=== PATIENT | male | born 1965 | race Two or more races ===

== ENCOUNTER 2017-10-07 08:41 | Day surgery (SDC) | payer OTHER | END 2017-10-07 15:00 | disposition home or self-care (01) | LOC: AMB-ENDOS 08:41 | DX: K57.30 Diverticulosis of large intestine without perforation or abscess without bleeding (principal); K64.1 Second degree hemorrhoids ==

== ENCOUNTER → 2020-04-18 | Day surgery (SDC) | payer OTHER | END | disposition home or self-care (01) | LOC: ADM 04-11 13:45 → CIR.AMB 09:19 | PROVIDERS: ATTEND Colon & Rectal Surgery | DX: C19 Malignant neoplasm of rectosigmoid junction (principal); Z20.822 Contact with and (suspected) exposure to COVID-19 ==